=== PATIENT | male | born 2000 | race Two or more races ===

== ENCOUNTER 2025-02-05 20:02 | Emergency (ER) | payer MEDICAID ==
[~2025-02-05] VITALS: Ht 188 cm; Wt 78.0 kg
[2025-02-05 20:06] VITALS: BP 152/88; PULSE 117; RESP 18; TEMP 98.5; O2SAT 98
[2025-02-05] MEDS: LIDOcaine 1% W/epiNEPHrine 1:100,000 20ml vial SQ STA (20:07)
--- NOTE | 2025-02-05 20:45 | RADIOLOGY REPORT ---
EXAM: DI TIB/FIB 2 VWS CLINICAL HISTORY: trauma right leg COMPARISON: None TECHNIQUE: DI TIB/FIB 2 VWS Findings/Impression: 2 views of the right tibia and fibula. There is no evidence of an acute fracture, dislocation, blastic, or lytic lesions. No radiopaque foreign bodies. No superficial soft tissue abnormalities.
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
== END 2025-02-05 22:52 ==
LOC: EDBD → ER 20:03
DX: S81.811A Laceration without foreign body, right lower leg, initial encounter (principal); X58.XXXA Exposure to other specified factors, initial encounter; Y93.89 Activity, other specified; Y92.89 Other specified places as the place of occurrence of the external cause; Y99.8 Other external cause status
CPT/HCPCS: 12001; 73590; 99283; A6222; A6446; A6449

== ENCOUNTER 2025-02-09 01:16 | Emergency (ER) | payer MEDICAID ==
[~2025-02-09] VITALS: Ht 188 cm; Wt 64.5 kg
[2025-02-09 01:19] VITALS: BP 127/80; PULSE 75; RESP 15; O2SAT 99
[2025-02-09] MEDS ORDERED: SULF1TAB49 PO (02:08)
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
[2025-02-09 02:36] VITALS: TEMP 96.3
[2025-02-09] MEDS: sulfamethoxazole/trimethoprim DS (800/160mg) tablet PO ONE (02:36)
[2025-02-09] MEDS: ondansetron 4mg rapidly disintigrating tab PO ONE (02:36)
== END 2025-02-09 02:39 | disposition home or self-care (01) ==
LOC: ER 01:17
DX: S81.811D Laceration without foreign body, right lower leg, subsequent encounter (principal); X58.XXXD Exposure to other specified factors, subsequent encounter
CPT/HCPCS: 99283

== ENCOUNTER 2025-05-14 18:41 | Inpatient (IN) | payer MEDICAID ==
[~2025-05-14] VITALS: Ht 180.3 cm; Wt 76.0 kg
[2025-05-14] VITALS (11 sets, daily range): BP systolic 114–140; BP diastolic 68–86; PULSE 65–117; RESP 14–29; TEMP 98; O2SAT 95–100
--- NOTE | 2025-05-14 18:54 | Physician Documentation ---
History of Present Illness General Stated Complaint: R TESTICULAR PAIN Time Seen by MD: 18:47 History of Present Illness Initial Comments This is a 23-year-old gentleman who presents for evaluation of sudden onset right-sided testicular pain. It was at rest, no trauma, occurred at 4:00 p.m., a proximally 3 hours prior to arrival. He feels that the pain radiates up and down his body into his groin and flank as well as down his leg. No particular palliating or aggravating factors. This never happened in the past. He feels that his right testicle is riding high in his very hard. Denies dysuria hematuria. He states that he is not sexually active and there wa s no chance that he has been STD. Denies any other symptoms. He smokes tobacco, he drinks, he does not do drugs. Medication Reconciliation Allergies: Coded Allergies: No Known Allergies (Unverified , 02/09/25) Review of Systems ROS 10 point review of systems was performed and unless noted above in HPI is ne gative for acute process/complaint. Physical Exam Physical Exam Physical Exam Physical examination: GENERAL: Awake, alert, oriented, GCS 15, no apparent distress, non-toxic appearing, answers questions, follows commands appropriately. Examined in triage. HEENT: Atraumatic, normocephalic, pupils equal, extraocular muscles intact Active gross movements, sclerae anicteric, mucus membranes moist, no stridor. NECK: Midline, no JVD CARDIOVASCULAR: Good skin perfusion without evidence of pallor, mottling. PULMONARY: Nonlabored, symmetric chest rise, no audible wheezing, no accessory muscle use, no respiratory distress, speaking in full sentences. GASTROINTESTINAL: Not distended. NEUROLOGIC: Lucid with normal mental status. Normal facial symmetry. Moves all extremities symmetrically and with purpose. No truncal ataxia. Speech is fluid without evidence of dysarthria or aphasia, no focal deficits appreciated. EXTREMITIES: Acute deformities Skin: warm, dry PSYCHIATRIC: Normal affect, normal insight, normal concentration. Focused exam: Right testicle is tender to palpation, rather hard. Epididymis is also tender to palpation. Negative Prehn sign. Absent cremasteric reflex. Progress Results/Orders Results/Orders Orders - STUART SALVADOR DO Urinalysis, Cult If Indicated (05/14/25 18:49) Us Testic/W/Duplex (05/14/25 ) Ct Abdomen Pelvis (05/14/25 18:49) Drug Screen, Urine (05/14/25 18:51) Page Hospitalist (05/14/25 19:51) Fill Out Med Reconciliation (05/14/25 19:51) Completed Orders - STUART SALVADOR DO Us Testic/W/Duplex (05/14/25 ) Ketorolac Trometh 30mg/Ml Vial (Toradol (05/14/25 18:50) Medications Received in ER Medications (Trade) Dose Ordered Sig/Trinity Route PRN Reason Start Time Stop Time Status Last Admin Dose Admin (Toradol inj. 30mg/ml) 30 mg ONCE ONCE IM 05/14/25 18:50 05/14/25 18:51 DC 05/14/25 19:07 30 MG Vital Signs 05/14/25 18:51 Temp 96.3 Pulse 89 Resp 15 B/P (MAP) 134/75 Pulse Ox 96 Medical Decision Making Findings Facility Status: ED Holds, RME process The plan was discussed with the patient, who demonstrates clear understanding of the plan and is in agreement with the plan unless otherwise noted in the chart. All questions have been answered, all concerns were addressed unless otherwise documented. I was available throughout their ED stay for frequent reassessment and questions. Differential Diagnoses (considered and possible or likely): [Orchitis, epididymitis, torsion, less likely renal colic, less likely UTI. The gentleman denies any chance of STD.] ??Differential Diagnoses (considered and unlikely, not requiring evaluation currently): [Denies any trauma] MDM Data Please see [facility] for the following: Independent Historians and external Records Review. Historian: [Patient] Independent Historians: ?[EMS] Medication Management: [Reviewed medication list] Social History and determinants: [Reviewed] Please see the body of the note for the following: Any independent interpretations of ECG, imaging studies. All vitals signs/haemodynamics, ordered tests were independently reviewed and interpreted by myself. Nursing triage complaint and vitals reviewed, additional nursing notes were reviewed as available and I agree unless otherwise noted or documented in contradiction in the chart Vital Signs: Independently reviewed Labs: Independently interpreted Imaging: Independently interpreted Old Medical Records: Independently reviewed, see [facility] for relevant summary and information Pulse Oximetry: [100%] interpreted as [normal on room air] by me Additionally notably showing: [Hemodynamically stable. Date: May 14, 2025 Time: 19:52 on my independent review and interpretation of testicular ultrasound, there is no blood flow to the right testicle. This is consistent with testicular torsion. Case was discussed with Dr. Wallace who will come see the patient. ] Tests considered but not ordered include: [Laboratory workup has been considerably does not appear to be necessary] Social Determinants of Health Impact: Patient was evaluated in [facility], [facility] [place] access to healthcare due to below par ratio of patient to medical providers. [] Comorbid Conditions Impacting Present Evaluation and Care/Treatment: [None] Management Discussions with other Healthcare Providers: [None] Treatment and Disposition Medication Management (Given or considered): [Pain management]. See EMR for details Consideration for Hospitalization/Escalation/Deescalation of Care: Admission for observation has been considered, and is necessary for further management of his testicular torsion. ?ED Course:?[No clinical deterioration or improvement] ?Shared decision making:?[] Code status:?FULL Please see the full Electronic Medical Record for full details of nursing documentation, medications list, other records of complete past medical history and conditions, vital signs, laboratory studies, and any radiologic study interpretations by radiologists. Portions of this note were completed using [employer] dictation software and as a result there may exist minor errors in spelling. I have reviewed elements of past family and social history and agree as included in note. Departure Disposition: 09 ADMITTED INPATIENT Impression: Primary Impression: Testicular torsion Condition: Guarded Discharge Instructions: Testicular Torsion, Adult Referrals: NO PRIMARY CARE PROVIDER (PCP) Education Educated: Patient Educated regarding: diagnosis, treatment, prognosis, need for follow up Signature Scribe Signature: No scribe Attestation: Date: May 14, 2025 Time: 18:54 This note accurately reflects clinical decisions, work performed by myself, Stuart Salvador, STUART PURDY DO May 14, 2025 18:54
[2025-05-14] MEDS: ketorolac trometh 30MG/ML vial 30 MG/ML VIAL IM ONE (19:07)
[2025-05-14] MEDS ORDERED: morphine 4 MG/ML inj SYRINge IV PRN ×2 (20:05)
[2025-05-14] MEDS ORDERED: ondansetron/PF 4mg/2ml inj IV PRN ×2 (20:05→20:35)
[2025-05-14] MEDS ORDERED: fentaNYL/PF 50MCG/1 ML 2ML syringe IV PRN ×2 (20:05)
[2025-05-14] MEDS ORDERED: labetalol 20mg/4ml (5mg/ml) syringe IV PRN (20:05)
[2025-05-14] MEDS ORDERED: hydrALAZINE 20mg/ml inj. IV PRN (20:05)
--- NOTE | 2025-05-14 20:12 | RADIOLOGY REPORT ---
ULTRASOUND OF SCROTUM AND CONTENTS. INDICATION: R testicular pain COMPARISON: None TECHNIQUE: Multiple real-time grayscale sonographic and color and duplex Doppler images of the scrotum and its contents were obtained. FINDINGS: The right testicle measures 4.9 x 2.9 x 2.8 cm. The left testicle measures 4.5 x 2.1 x 2.4 cm. Few tiny microcalcifications within the left testicle. Color and duplex doppler interrogation of the right testicle demonstrates no appreciable arterial flow. Similarly there is no appreciable flow within the right epididymis. Color duplex Doppler interrogation of the left testicle is normal. IMPRESSION: No appreciable arterial flow within the right testicle and right epididymis highly concerning for testicular torsion. Findings discussed with the patients ER MD Dr. Marie at 8:09 PM on 05/14/2025.
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
[2025-05-14] MEDS: ringers solution, lacted 1,000 ML IV SCH (20:26)
[2025-05-14] MEDS ORDERED: ROPIVAcaine 0.5% (5mg/ml) 30ml vial ONE (20:28)
[2025-05-14] MEDS ORDERED: cloNIDine hcl/PF 100mcg/ml inj ONE (20:28)
[2025-05-14] MEDS ORDERED: ketorolac trometh 30MG/ML vial 30 MG/ML VIAL ONE (20:29)
[2025-05-14] MEDS ORDERED: bacitracin 15gm ointment TP ONE (20:33)
[2025-05-14] MEDS: normal saline 1000ml 1,000 ML IV SCH (20:35)
[2025-05-14] MEDS ORDERED: magnesium Cl slow-release 64mg tablet PO PRN (20:35)
[2025-05-14] MEDS ORDERED: potassium Cl 40MEQ/1/2NS 520ml 520 ML IV PRN (20:35)
[2025-05-14] MEDS ORDERED: magnesium hydroxide 30ml (MOM) UD suspension PO PRN (20:35)
[2025-05-14] MEDS ORDERED: magnesium sulf-water 2g/50mL 50 ML IV PRN (20:35)
[2025-05-14] MEDS ORDERED: mag hydrox/Alum hydrox/simeth 30ml oral suspension PO PRN (20:35)
[2025-05-14] MEDS ORDERED: potassium Cl 20 mEq SR tablet PO PRN ×2 (20:35)
[2025-05-14] MEDS ORDERED: magnesium sulf-water 4G/100mL 100 ML IV PRN (20:35)
[2025-05-14 21:02] LABS: MEAN PLATELET VOLUME 9.9 FL (7.4-10.4); RED CELL DISTRIBUTION WIDTH 14.3 % (11.5-14.5)
--- NOTE | 2025-05-14 21:02 | HISTORY AND PHYSICAL-Residence ---
History & Physical Providers to CC Resident Creating Document: CATIE GARCIA YEYO ~ History of Present Illness Reason for Admit\Complaint: Testicular pain History of Present Illness 23-year-old male with suspected history of mental disorder, EtOH presented to the ED due to severe scrotal pain. Patient with diagnosis of testicular torsion transferred to OR by Dr. Wallace. Most of the information gathered from medical charts/ED physician/ parent Patient reported had sudden-onset right side testicular pain 3 hours before arrival to the ED which was severe and radiated to his groin and his flank. He also reported his right testicle is riding high and tense. He denied any urinary symptoms including urinary frequency dysuria hematuria. The pain was not positional and did not have any similar symptoms before. He also reported. Ultrasounds in ED was done which revealed lack of blood flow to the right testicle. Dr. Wallace was informed who is transferring patient to the OR for emergent scrotal exploration with bilateral orchiopexy. As parent report patient had mental disorder, he choose to lives in the street and be homeless, as his mother report patient sometimes hallucinating and had delusion and she suspected he had some mental disorder and also she reported patient drink alcohol everyday and they do not know the amount of alcohol he is drinking. They also reported patient smoked marijuana Allergies: Coded Allergies: No Known Allergies (Unverified , 02/09/25) Home Medications Home Medications Active Past Medical History Past Medical History As parents report patient had mental disorder Alcohol disorder Past Surgical History Surgical History Comment Wrist surgery Family History Family History: Patient reports no known family medical history. Past Social History Smoking: Cigarettes Alcohol Use: Occasionally Drug Use: Marijuana Lives In: Homeless ROS ROS Constitutional: No fever, dizziness, weakness. no change in appetite/weight HEENT: No blurring of the vision, No sore throat, epistaxis, tinnitus Cardiovascular: no chest pain/discomfort, palpitations, no syncope. No pedal edema Respiratory: No sob, cough,, hemoptysis Gastrointestinal: no abdominal pain, no nausea, vomiting. no diarrhea, no constipation, melena. Genitourinary: As HPI Musculoskeletal: No arthralgia, myalgia Endocrine: No polydipsia, polyuria. No heat or cold intolerance Neurologic: No headache, vertigo. No weakness, no numbness or tingling of extremities Psychiatric: As his mother report positive for hallucinations/delusions, no anhedonia, no suicidal ideation\ Hematologic: No bleeding or bruises Exam Vitals: Vital Signs Date Time Temp Pulse Resp B/P (MAP) Pulse Ox O2 Delivery O2 Flow Rate FiO2 05/14/25 20:33 05/14/25 20:06 81 16 99 0 05/14/25 18:51 96.3 General: General: Awake and Alert, mild acute distress. HEENT: Conjunctiva pink, Sclera clear, Mucus Membranes moist. Neck: Supple without masses and tenderness. Resp: Lungs clear to auscultation bilaterally. Heart: Regular Rate and rhythm, normal S1 and S2 Abdomen: Soft and non tender Genitourinary exam: Examined by ED physician: Right testicle is tender to palpation, rather hard. Epididymis is also tender to palpation. Negative Prehn sign. Absent cremasteric reflex. Extremities: No cyanosis,clubbing or edema. Skin: Warm and Dry. Neurological: Speech is clear, alert, and oriented x 4, no gross neurological deficits Diagnostic Data Last Recorded Lab Results: 05/14/25203905/14/252039 Diagnostic Data: Laboratory Tests Test 05/14/25 20:40 Coagulation Comments Advance Care Planning Advanced Care plannin - 30 Minutes Additional Plan 23 years old male with suspected mental health disorder, alcohol drinker, presented to the ED due to sudden onset of right testicular pain Testicular torsion Right side testicular pain Sudden onset, waiting 3 hours before arrival, Negative Prehn sign. Absent cremasteric reflex. Urine tox negative, Testicular ultrasound showed: No appreciable arterial flow within the right testicle and right epididymis highly concerning for testicular torsion. Dr. Wallace was consulted who suggested an emergent scrotal exploration with bilateral orchiopexy and possible right simple orchiectomy Alcohol disorder As his mother reports patient drink alcohol in daily basis Alcohol withdrawal protocol ordered Code Status: full DVT prophylaxis: SCDs Analgesia/sedation: morphin Line/tube: peripheral GI prophylaxis: none Nutrition: NPO PT: Y Prognosis: Guarded Disposition: Continue monitoring patient follow up after surgery Catie Garcia MD Internal Medicine Resident Date of Service: May 14, 2025 Billing Provider: BETI STEPHENS MD Common Visit Codes: [id number] INP/OBS CARE (HIGH) Assessment/Plan Assessment Patient with catastrophic surgical event requiring orchiectomy for torsion progressing to ischemic testicles on 1 side. Recovering well postoperatively Case was discussed with the residents. reviewed notes by the resident. Agree with her care plans. CATIE GARCIA, RES May 14, 2025 21:01 BETI STEPHENS MD May 15, 2025 05:48
[2025-05-14] MEDS ORDERED: dexamethasone sod phosphate 4mg/ml inj. ONE (21:11)
[2025-05-14] MEDS ORDERED: metoclopramide 5 mg/ml inj ONE ×2 (21:11→21:23)
[2025-05-14] MEDS ORDERED: propofol inj 20 ML IV ONE ×2 (21:11→21:13)
[2025-05-14 21:14] LABS: APTT 30 SECONDS (22-32); INR 1.0 INR
[2025-05-14] MEDS ORDERED: acetaminophen 1,000mg/100ml IV 100 ML IV ONE (21:16)
[2025-05-14] MEDS ORDERED: midazolam 1 mg/ML 2ml injection ONE (21:17)
[2025-05-14] MEDS ORDERED: fentaNYL/PF 50MCG/1 ML 2ML syringe ONE (21:17)
[2025-05-14 21:18] LABS: CREATININE 0.93 MG/DL (0.60-1.10); PHOSPHORUS 3.4 MG/DL (2.3-4.5); TOTAL CARBON DIOXIDE 26.1 MMOL/L (24-32); eCRCL 132 ML/MIN; eGFR > 90 ML/MIN
[2025-05-14 21:21] LABS: LEUKOCYTE ESTERASE ,URINE NEGATIVE (Neg); NITRITES, URINE NEGATIVE (Neg); OCCULT BLOOD,URINE MODERATE (Neg); URINE AMPHETAMINE SCREEN NEGATIVE (Neg); URINE BARBITUATE SCREEN NEGATIVE (Neg); URINE BENZODIAZEPINES SCREEN NEGATIVE (Neg); URINE CANNABINOID SCREEN NEGATIVE (Neg); URINE COCAINE SCREEN NEGATIVE (Neg); URINE METHADONE SCREEN NEGATIVE (Neg); URINE OPIATE SCREEN NEGATIVE (Neg); URINE PHENCYCLIDINE SCREEN NEGATIVE (Neg)
[2025-05-14 21:31] LABS: UA COLLECTION TYPE URINAL
[2025-05-14 21:33] LABS: SQUAMOUS EPITHELIAL CELL,UR NONE SEEN /LPF (FEW)
--- NOTE | 2025-05-14 21:54 | OPERATIVE REPORT ---
Operative Report Providers to ~ Date of Procedure: May 14, 2025 Pre-Operative Diagnosis: Right testicular torsion Post-Operative Diagnosis SAME as PRE-Op Procedure Performed Scrotal exploration Right simple orchiectomy Left orchiopexy Left appendix testis removal. Surgeon: Bert Barnard MD Spiritual Counselor None. Anesthesiologist: Gerardo Gupta Type of Anesthesia: General Findings: During scrotal exploration the patient's right testicle was completely infarcted and black with necrosis. It was removed. The left testicle was successfully pexied in to a subdartos pouch. Complications None. Estimated Blood Loss: Minimal. Specimen Removed: Right simple orchiectomy specimen Description of Procedure: The patient was asleep under the effects of general anesthesia and his testicles were clipped of hair and draped in sterile fashion. Sharply we incised the skin over the right hemiscrotum and electrocautery was used to divide dartos fascia and the tunica vaginalis. The testicle was then delivered into the surgical field and appeared black with necrosis. The testicle was rotated two full rotations encounter clockwise fashion which then allowed for orthotopic appearance of the spermatic cord. With the testicle completely de torsed it was covered in a Swarm saline gauze. We then sharply incised the skin over the left hemiscrotum and electrocautery was used to divide dartos fascia and the tunica vaginalis in order to reach the left testicle. The testicle was delivered into the surgical field and examined. It had a large appendix testis which was removed. A subdartos pouch was made bluntly within the scrotum and the testicle was placed into this subdartos pouch. Absorbable sutures were then used to pexy the testicle laterally and medially within the subdartos pouch. Dartos fascia was closed over top of the testicle in running fashion followed by the skin. We then turned our attention to the right testicle. We removed our warm saline gauze but the testicle was still completely black and had become more like a soft bag of necrotic tissue. We elected to remove it. A suture ligation technique was used to control the spermatic cord high within the scrotum and the spermatic cord was then divided between our suture and the testicle. The testicle was passed off the surgical field and we then closed dartos fascia in running fashion and the skin also in running fashion all with absorbable sutures. His scrotum was then infiltrated with local anesthetic marking the end of the procedure. BERT BARNARD MD May 14, 2025 21:54
[2025-05-14] MEDS: thiamine 100mg/ml 2ml inj. IV SCH (23:32)
[2025-05-15] VITALS (9 sets, daily range): BP systolic 108–130; BP diastolic 57–81; PULSE 66–94; RESP 16–18; TEMP 97.3–98.7; O2SAT 95–100
[2025-05-15] MEDS ORDERED: HYDROcodone/acetaminophen 5mg/325mg tablet PO PRN (05:30)
[2025-05-15] MEDS ORDERED: morphine 4 MG/ML inj SYRINge IV PRN (05:40)
[2025-05-15 06:00] LABS: MEAN PLATELET VOLUME 10.4 FL (7.4-10.4); RED CELL DISTRIBUTION WIDTH 14.1 % (11.5-14.5)
[2025-05-15 06:24] LABS: CREATININE 1.03 MG/DL (0.60-1.10); TOTAL CARBON DIOXIDE 26.1 MMOL/L (24-32); eCRCL 119 ML/MIN; eGFR 89 ML/MIN
[2025-05-15] MEDS: K and/or MAG REPLACEMENT MC SCH (08:00)
[2025-05-15] MEDS: docusate sod 100mg capsule PO SCH (08:42)
[2025-05-15] MEDS: multivitamins, therapeutics tablet PO SCH (08:42)
[2025-05-15] MEDS: HYDROcodone/acetaminophen 10/325mg tab PO PRN (08:43)
[2025-05-15] MEDS: folic acid 1mg/0.2ml inj IV SCH (14:40)
[2025-05-15] MEDS: NICOTINE POLACRILEX 2 MG LOZENGE BC PRN (14:40)
[2025-05-15] MEDS ORDERED: NO HOME MEDS (15:22)
--- NOTE | 2025-05-15 15:42 | PROGRESS NOTE- Residence ---
Progress Note - Resident Providers to CC Resident Creating Document: KELSIE MARTINEZ, RES ~ Antibiotic Timeout Antibiotic Ordered?: No Subjective Patient was seen at bedside. Patient tolerated the procedure well. Patient complains of mild pain in the scrotal region 4/10 in intensity. Patient denies any other complaints or concerns at the moment. Objective Vital Signs Date Time Temp Pulse Resp B/P (MAP) Pulse Ox O2 Delivery O2 Flow Rate FiO2 05/15/25 14:51 18 05/15/25 06:00 97.6 84 121/58 (79) 98 Room Air 05/15/25 00:15 0.0 21 Result Diagram: 05/15/2543505/15/25435 Awake , alert and oriented to time,place, person,not in distress HEENT: Atraumatic, normocephalic, PERRLA, EOMI, anicteric sclera ; pink conjunctiva, moist mucos membranes Neck: Trachea midline. Supple, normal range of motion, no JVD, no lymphadenopathy Chest and Respiratory: Equal breath sounds bilaterally, no tachypnea, wheezing, ronchi,rubs .Chest wall is symmetric and without deformity. Cardiac: S1, S2 heard,Regular rate and rhythm, no murmurs heard. Abdomen: Soft, No tenderness, No guarding or rigidity, Darby's sign negative. normal bowel sounds x4 quadrant, no hepatosplenomegaly Genitourinary examination: Scrotum covered with dressing. MSK: Range of motion of all extremities are normal. There is no joint pain or joint swelling or joint erythema. There is no muscle pain or tenderness or swelling. Extremities: warm, well-perfused, No cyanosis, clubbing, 2+ pulses felt Neurological: Speech is clear, alert, and oriented x 4. No sensory or motor deficits. Cranial nerves II-XII intact. Skin: Warm and dry Psychiatry: Affect and mood are normal Coagulation Studies Laboratory Tests Test 05/14/25 20:40 Prothrombin Time 10.4 SECONDS (9.0-12.0) INR International Normalized Ratio 1.0 INR Activated Partial Thromboplast Time 30 SECONDS (22-32) Coagulation Comments Advance Care Planning Advanced Care plannin - 30 Minutes Assessment Assessment A 23 years old male patient admitted with right testicular torsion and underwent right simple orchiectomy and left orchiopexy. Plan Plan Right testicular torsion S/P Right simple orchiectomy & Left orchiopexy by Dr. Wallace on 05/15/2025 Patient has Right side testicular pain, Sudden onset, waiting 3 hours before arrival, Negative Prehn sign. Absent cremasteric reflex. Urine tox negative Testicular ultrasound showed: No appreciable arterial flow within the right testicle and right epididymis highly concerning for testicular torsion. Dr. Wallace was consulted 05/15/25: patient tolerated the procedure well Discontinue IV fluids Pain management with morphine and [place] Started on regular diet Alcohol use disorder As his mother reports patient drinks alcohol in daily basis Alcohol withdrawal protocol ordered Code Status: full DVT prophylaxis: SCDs Analgesia/sedation: morphine/[place] Line/tube: peripheral GI prophylaxis: none Nutrition: Regular diet Disposition: Patient is homeless, discussing with case therapist regarding the discharge to [facility] (patient prefers [facility]) Resident attestation The above note has been reviewed and supervised by a senior resident PGY3 Patient was seen, examined and discussed with the attending physician Jefe Martinez MD Internal Medicine Resident, PGY 1 Date of Service: May 15, 2025 Billing Provider: CODIE LEWIS MD Common Visit Codes: [id number] INP/OBS CARE(HIGH) KELSIE MARTINEZ, RES May 15, 2025 15:42 CODIE LEWIS MD May 16, 2025 08:00
[2025-05-15] MEDS: morphine 4 MG/ML inj SYRINge IV PRN (22:34)
[2025-05-16 04:41] LABS: MEAN PLATELET VOLUME 9.7 FL (7.4-10.4); RED CELL DISTRIBUTION WIDTH 14.3 % (11.5-14.5)
[2025-05-16 04:58] LABS: CREATININE 0.89 MG/DL (0.60-1.10); TOTAL CARBON DIOXIDE 29.6 MMOL/L (24-32); eCRCL 137 ML/MIN; eGFR > 90 ML/MIN
[2025-05-16 06:00] VITALS: BP 116/62; PULSE 69; RESP 14; TEMP 98.2; O2SAT 98
[2025-05-16 11:00] VITALS: BP 131/64; PULSE 77; RESP 17; TEMP 97.7; O2SAT 97
[2025-05-16] MEDS ORDERED: HYDR-3973 PO (12:09)
--- NOTE | 2025-05-16 20:41 | DISCHARGE SUMMARY-Residence ---
Discharge Summary Providers to CC Resident Creating Document: KELSIE DORSEY, RES ~ Discharge Summary Admission Diagnosis: Right testicular torsion Hospital Course DATE OF ADMISSION: 05/14/2025 DATE OF DISCHARGE: 05/16/2025 Discharge Diagnosis\Comment: Right testicular torsion Alcohol use disorder Operations\Procedures: Right testicular torsion S/P Right simple orchiectomy & Left orchiopexy by Dr. Wallace on 05/15/2025 Consultants: Dr. Wallace Complications: None Condition on DC: Stable New Medications: Hydrocodone Bit/Acetaminophen (Hydrocodone-Apap 10-325 Tablet) 10mg/325mg Tablet 1 TAB PO QID PRN PRN for pain for 5 Days, #20 TAB Discontinued Medications: Home Med List (No Home Medications) Each Discharge Summary: Course in the hospital: Patient is a 23-year-old male with suspected history of mental disorder, EtOH presented to the ED due to sudden-onset right side testicular pain 3 hours before arrival to the ED which was severe and radiated to his groin and his flank. He also reported his right testicle is riding high and tense. The pain was not positional and did not have any similar symptoms before. He denied any urinary symptoms including urinary frequency dysuria hematuria. As parent report patient had mental disorder, he choose to lives in the [address] and be homeless, as his mother report patient sometimes hallucinating and had delusion and she suspected he had some mental disorder and also she reported patient drink alcohol everyday and they do not know the amount of alcohol he is drinking. They also reported patient smoked marijuana. On Genitourinary exam by ED physician: Right testicle is tender to palpation, rather hard. Epididymis is also tender to palpation. Negative Prehn sign. Absent cremasteric reflex.Ultrasounds in ED was done which revealed lack of blood flow to the right testicle. Dr. Wallace was informed who is transferring patient to the OR for emergent scrotal exploration. Patient underwent Right testicular torsion S/P Right simple orchiectomy & Left orchiopexy. patient tolerated the procedure well and was stable at the time of discharge. Imaging: Testicular ultrasound: No appreciable arterial flow within the right testicle and right epididymis highly concerning for testicular torsion. Vital Signs Date Time Temp Pulse Resp B/P (MAP) Pulse Ox O2 Delivery O2 Flow Rate FiO2 05/16/25 11:00 97.7 77 17 131/64 (86) 97 Room Air 05/15/25 00:15 0.0 21 Laboratory Tests Test 05/14/25 20:40 05/14/25 23:29 05/15/25 04:36 05/15/25 21:45 White Blood Count 9.9 X10'3 10.5 X10'3 Red Blood Count 4.68 X10'6 4.82 X10'6 Hemoglobin 14.2 g/dl 14.5 g/dl Hematocrit 41.8 % 42.7 % Mean Corpuscular Volume 89.4 FL 88.6 FL Mean Corpuscular Hemoglobin 30.3 PG 30.1 PG Mean Corpuscular Hemoglobin Concent 33.9 g/dL 34.0 g/dL Red Cell Distribution Width 14.3 % 14.1 % Platelet Count 194 X10'3 207 X10'3 Mean Platelet Volume 9.9 FL 10.4 FL Neutrophils (%) (Auto) 82.0 % 89.5 % Lymphocytes (%) (Auto) 9.0 % 5.5 % Monocytes (%) (Auto) 7.3 % 4.5 % Eosinophils (%) (Auto) 0.9 % 0.1 % Basophils (%) (Auto) 0.8 % 0.4 % Neutrophils # (Auto) 8.1 X10'3 9.4 X10'3 Lymphocytes # (Auto) 0.9 X10'3 0.6 X10'3 Monocytes # (Auto) 0.7 X10'3 0.5 X10'3 Eosinophils # (Auto) 0.1 X10'3 0.0 X10'3 Basophils # (Auto) 0.1 X10'3 0.0 X10'3 CBC Comment Prothrombin Time 10.4 SECONDS INR International Normalized Ratio 1.0 INR Activated Partial Thromboplast Time 30 SECONDS Coagulation Comments Sodium Level 142 MMOL/L 137 MMOL/L Potassium Level 4.1 MMOL/L 4.7 MMOL/L Chloride Level 107 MMOL/L 104 MMOL/L Carbon Dioxide Level 26.1 MMOL/L 26.1 MMOL/L Anion Gap 9 7 Blood Urea Nitrogen 6 MG/DL 8 MG/DL Creatinine 0.93 MG/DL 1.03 MG/DL Estimated GFR/1.73 m2 > 90 ML/MIN 89 ML/MIN BUN/Creatinine Ratio 6.5 7.8 Glucose Level 88 MG/DL 106 MG/DL Calcium Level 8.5 MG/DL 8.5 MG/DL Phosphorus Level 3.4 MG/DL Total Bilirubin 0.4 MG/DL 0.7 MG/DL Aspartate Amino Transf (AST/SGOT) 30 U/L 26 U/L Alanine Aminotransferase (ALT/SGPT) 23 U/L 16 U/L Alkaline Phosphatase 78 IU/L 81 IU/L Total Protein 6.8 G/DL 6.9 G/DL Albumin 3.5 G/DL 3.3 G/DL Globulin 3.3 G/DL 3.6 G/DL Albumin/Globulin Ratio 1.1 0.9 Chemistry Comments Glucometer 103 mg/dl 113 mg/dl Magnesium Level 2.3 MG/DL Test 05/15/25 22:50 05/16/25 04:30 SARS-CoV-2 Antigen (Rapid) Negative White Blood Count 7.4 X10'3 Red Blood Count 4.48 X10'6 Hemoglobin 13.4 g/dl Hematocrit 40.1 % Mean Corpuscular Volume 89.4 FL Mean Corpuscular Hemoglobin 29.8 PG Mean Corpuscular Hemoglobin Concent 33.4 g/dL Red Cell Distribution Width 14.3 % Platelet Count 189 X10'3 Mean Platelet Volume 9.7 FL Neutrophils (%) (Auto) 69.3 % Lymphocytes (%) (Auto) 16.9 % Monocytes (%) (Auto) 11.0 % Eosinophils (%) (Auto) 2.2 % Basophils (%) (Auto) 0.6 % Neutrophils # (Auto) 5.2 X10'3 Lymphocytes # (Auto) 1.3 X10'3 Monocytes # (Auto) 0.8 X10'3 Eosinophils # (Auto) 0.2 X10'3 Basophils # (Auto) 0.0 X10'3 CBC Comment Sodium Level 141 MMOL/L Potassium Level 3.6 MMOL/L Chloride Level 106 MMOL/L Carbon Dioxide Level 29.6 MMOL/L Anion Gap 5 Blood Urea Nitrogen 8 MG/DL Creatinine 0.89 MG/DL Estimated GFR/1.73 m2 > 90 ML/MIN BUN/Creatinine Ratio 9.0 Glucose Level 93 MG/DL Calcium Level 8.2 MG/DL Magnesium Level 2.1 MG/DL Total Bilirubin 0.5 MG/DL Aspartate Amino Transf (AST/SGOT) 23 U/L Alanine Aminotransferase (ALT/SGPT) 20 U/L Alkaline Phosphatase 72 IU/L Total Protein 6.1 G/DL Albumin 3.0 G/DL Globulin 3.1 G/DL Albumin/Globulin Ratio 1.0 Chemistry Comments Physical exam at discharge: Awake , alert and oriented to time,place, person,not in distress HEENT: Atraumatic, normocephalic, PERRLA, EOMI, anicteric sclera ; pink conjunctiva, moist mucos membranes Neck: Trachea midline. Supple, normal range of motion, no JVD, no lymphadenopathy Chest and Respiratory: Equal breath sounds bilaterally, no tachypnea, wheezing, ronchi,rubs .Chest wall is symmetric and without deformity. Cardiac: S1, S2 heard,Regular rate and rhythm, no murmurs heard. Abdomen: Soft, No tenderness, No guarding or rigidity, Darby's sign negative. normal bowel sounds x4 quadrant, no hepatosplenomegaly MSK: Range of motion of all extremities are normal. There is no joint pain or joint swelling or joint erythema. There is no muscle pain or tenderness or swelling. Extremities: warm, well-perfused, No cyanosis, clubbing, 2+ pulses felt Neurological: Speech is clear, alert, and oriented x 4. No sensory or motor deficits. Cranial nerves II-XII intact. Skin: Warm and dry Psychiatry: Affect and mood are normal Discharge instructions: Advised to follow up with outpatient Urology Dr. Wallace in 1 week *Problems/Diagnosis: (1) Testicular torsion Status: Acute (2) Right testicular torsion Total Time Spent on D/C: > 30 Minutes Date of Service: May 16, 2025 Billing Provider: CODIE LEWIS MD Common Visit Codes: 39074-CDY/OBS DISCH DAY >30min KELSIE DORSEY, RES May 16, 2025 20:39 CODIE LEWIS MD May 17, 2025 06:30
== END 2025-05-16 13:43 | disposition home or self-care (01) | DRG 483 ==
LOC: ER 18:42 → ED HOLD 20:46 → PACU 21:16 → SUR 3N 22:30
PROVIDERS: ADMIT Internal Medicine Critical Care Medicine; ATTEND Internal Medicine
PROC: 0VBC0ZZ Excision of Bilateral Testes, Open Approach (ICD-10-PCS; 2025-05-14)
PROC: 0VS90ZZ Reposition Right Testis, Open Approach (ICD-10-PCS; principal; 2025-05-14 21:05)
DX: N44.00 Torsion of testis, unspecified (principal); Z59.00 Homelessness unspecified; F17.210 Nicotine dependence, cigarettes, uncomplicated; F10.10 Alcohol abuse, uncomplicated; Y90.9 Presence of alcohol in blood, level not specified; Z20.822 Contact with and (suspected) exposure to COVID-19
CPT/HCPCS: 36415; 76870; 80053; 80305; 81001; 82948; 83735; 84100; 85025; 85610; 85730; 87081; 87811; 93976; 96360; 96372; 99285; A4215; A4618; A6446; A7000; G0378; J0131; J0169; J0690; J0735; J1100; J1200; J1885; J2250; J2270; J2704; J2765; J2795; J3010; J3411; J3490; J7030; J7120

== ENCOUNTER 2025-07-25 22:41 | Emergency (ER) | payer MEDICAID ==
[~2025-07-25 22:41] MED LIST: ALBU18HF2 INH; IBUP600T52 PO
[2025-07-25 22:50] VITALS: BP 126/82; PULSE 77; RESP 15; O2SAT 99
--- NOTE | 2025-07-25 23:09 | Physician Documentation ---
History of Present Illness ~ Chief Complaint: Back Pain Stated Complaint: SEVERE BACK PAIN Time Seen by MD: 22:54 OK to notify your PCP?: Yes Source: patient Mode of Arrival: POV Exam Limitations: no limitations HPI This is a 23-year-old male who comes in complaining of low back pain. He states he has had this for the past couple of weeks. He says that has back will woke up at times and spasm. He denies known cause or injury. He denies distal numbness tingling weakness. The patient states he was recently here for bronchitis and told him about his back pain and they put him on a course of steroids which did help however with the steroids wore off with the symptoms returned. He denies saddle paresthesias, urinary retention loss of bowel control. Medication Reconciliation Allergies: Coded Allergies: No Known Allergies (Unverified , 07/25/25) Scheduled PRN Albuterol Sulfate (Ventolin Hfa), 2 PUFFS INH Q4HPRN PRN for SOB or wheezing Ibuprofen (Ibuprofen), 1 TAB PO Q6H PRN for pain Discontinued Medications Prednisone* (Prednisone*), 2 TAB PO DAILY Discontinued Reason: Auto Discontinued Past Medical History Patient History: Patient reports no known family medical history. Alcohol Use: Occasionally Drug Use: marijuana Lives In: Homeless Physical Exam Physical Exam Vital Signs: Source: Temporal, Heart Rate: 77, Respiratory Rate: 15, BP: 126/82, Pulse Oximetry: 99 General Appearance: alert, WD/WN, no apparent distress Back There is tenderness to palpation of the bilateral paraspinal muscles from with the thoracolumbar spine down to the mid thoracic spine. No midline step-off deformity or point tenderness. The patient is complains of pain with the trunk with flexion-extension rotation however this is subjective pain. No obvious ran ge of motion deficits. Progress Results/Orders Reviewed/noted all lab results: Yes Results/Orders Completed Orders - BRETT PHAM Dexamethasone Inj (Decadron 10mg/Ml Inj) (07/25/25 22:54) Ketorolac Trometh 15mg/Ml Vial (Toradol (07/25/25 22:55) Vital Signs 07/25/25 22:50 Pulse 77 Resp 15 B/P (MAP) 126/82 Pulse Ox 99 Medical Decision Making Additional information obtaine: N/A Findings Clinically the patient is well-appearing in no apparent distress. He is the patient is complaining of back pain that has says he has had for weeks without injury. He denies abdominal pain or change in bladder or bowel habits. I have no suspicion for a intra-abdominal etiology. The patient states that has symptoms did improve with a course of steroids that he was on previously. I gave the patient injection of the Decadron 10 mg IM and Toradol 30 mg IM here. I will continue with the bursa prednisone at 60 mg once a day for the next four days and give him Robaxin muscle relaxer to help with the his sleep. You can follow up with the primary care physician for further outpatient care and return to the ER for any worsening or concerning symptoms. Differential Dx:Considerations: Musculoskeletal pain Differential Diagnosis Chronic back pain. Low back sprain strain. Disc herniation of the lumbar spine . Doubt fracture. Departure Disposition: HOME / SELF CARE / HOMELESS Impression: Primary Impression: Low back pain Condition: Stable Discharge Instructions: Chronic Back Pain, [id number], Managing Chronic Back Pain Additional Instructions: Take the medications as prescribed. Follow up with the primary care physician for recheck in the next one or two days and return to the ER for any worsening or concerning symptoms. Referrals: NO PRIMARY CARE PROVIDER (PCP) Prescriptions Methocarbamol (Methocarbamol) 750 Mg Tablet 1 TAB PO Q8H for Back pain/spasm, #20 TAB 0 Refills Prov: BRETT PHAM 07/25/25 Prednisone* (Prednisone*) 20 Mg Tablet 3 TAB PO DAILY for 4 Days, #12 TAB Prov: BRETT PHAM 07/25/25 Signature Scribe Signature: No scribe Attestation: The note accurately reflects work and decisions made by me.Brett SANCHEZ 07/25/25 23:12 BRETT PHAM Jul 25, 2025 23:09
[2025-07-25] MEDS ORDERED: PRED20TA PO (23:11)
[2025-07-25] MEDS ORDERED: METH-798 PO (23:11)
[2025-07-25] MEDS: dexamethasone sod phosphate 10mg/ml inj IM STA (23:49)
[2025-07-25] MEDS: ketorolac trometh 15mg/ml vial 15 MG/ML ML IM ONE (23:49)
== END 2025-07-25 23:56 | disposition home or self-care (01) ==
LOC: ER 22:41
DX: M54.50 Low back pain, unspecified (principal); F12.90 Cannabis use, unspecified, uncomplicated; Z59.00 Homelessness unspecified; Z72.89 Other problems related to lifestyle
CPT/HCPCS: 96372; 99284; J1100; J1885